=== PATIENT | female | born 1965 | race Caucasian/White ===

== ENCOUNTER → 2016-08-01 | Day surgery (SDC) | payer BC ==
[2016-07-10 10:09] LABS: BASO % 0.5 %; BASO ABS # 0.03 K/uL (0-0.2); COMPLETE YES; EOS % 2.5 %; HEMATOCRIT 44.4 % (37-47); IG% 0.2 %; LYMPH % 21.8 %; MEAN CELL VOLUME 89.3 fL (80-100); MEAN CORPUSCULAR HEMOGLOBIN 30.6 pg (25-34); MEAN CORPUSCULAR HGB CONC 34.2 g/dl (32-36); MEAN PLATELET VOLUME 9.8 fL (7.4-10.4); MONO % 9.9 %; NEUT % 65.1 %; PLATELET COUNT 312 K/uL (130-400); RED BLOOD COUNT 4.97 M/uL (4.2-5.4); WHITE BLOOD COUNT 5.97 K/uL (4.8-10.8)
--- NOTE | 2016-07-10 10:12 | HISTORY & PHYSICAL EXAMINATION ---
DATE OF ADMISSION: 08/01/2016 CHIEF COMPLAINT: Thickened endometrium and concern for endometrial mass. HISTORY OF PRESENT ILLNESS: The patient is a 51-year-old white female 0 who presented to her annual exam in May. At that time she had a followup ultrasound to monitor her known fibroid uterus. The uterus was overall shrinking in size and shape. There is a dominant fundal subserosal left fibroid that went from 110 mL to 99.8 mL. The ovaries appeared normal. The endometrium measured 8.5 mm and vascularity was noted. A mass could not be ruled out for certain so a saline infusion sonogram was ordered. A saline infusion sonogram was performed showing multiple endometrial masses and decision was made to proceed to D\T\C hysteroscopy with removal of masses. ALLERGIES: No known drug allergies. MEDICATIONS: Asmanex, Singulair and Ventolin as needed. PAST MEDICAL HISTORY: Significant for allergic rhinitis and asthma. She also has esophageal reflux. SURGICAL HISTORY: She has history of EGD, but no other surgeries. FAMILY HISTORY: Significant for family history of asthma. No family history of breast cancer. Family history of colon cancer. No family history of ovarian cancer. Family history of heart disease. SOCIAL HISTORY: The patient is . She denies smoking. She occasionally has an alcoholic beverage drinking 2-3 alcoholic beverages per week. PHYSICAL EXAMINATION: GENERAL: This is a well-developed, well-nourished white female in no acute distress. VITAL SIGNS: Blood pressure 118/80, height 5 feet 4 inches, weight 172.2 pounds. NECK: Supple without thyromegaly or lymphadenopathy. CHEST: Clear to auscultation bilaterally. CARDIOVASCULAR: Regular rate and rhythm without murmurs, gallops or rubs. ABDOMEN: Soft, nontender, nondistended, without appreciable masses. PELVIC: There is normal external female genitalia. Normal Bartholin, urethra and [place]'s glands. Vagina is pink, moist, with fair rugae. There was no active vaginal bleeding. The cervix was normal and nulliparous without discharge. On bimanual exam, the cervix is soft without cervical motion tenderness. The uterus feels a bit irregular, but no significant enlargement, and is mobile. There are no appreciable adnexal masses. Palpation of the bladder is negative. Rectovaginal exam is deferred. ASSESSMENT: Shabana is a 51-year-old G0, menstrual, who we have been following for a fibroid uterus and it was found that she had a thickened endometrium and an saline-infusion sonography consistent with multiple probable endometrial masses, most likely polyps. I have recommended a dilatation and curettage hysteroscopy with removal of endometrial masses. The risks of the procedure were discussed with the patient including the risks of anesthesia, bleeding requiring transfusion, infection and poor wound healing, damage to surrounding structures including bowel, bladder, vessels, nerves and ureters, with a 1% chance of uterine perforation requiring further surgical intervention. Discussed the other risks of surgery including heart attack, blood clot, stroke or . Questions were asked and answered. Procedure is planned for the 01 of August.
[2016-07-22 08:18] VITALS: Ht 162.6 cm; Wt 77.3 kg
[~2016-08-01] VITALS: Ht 162.6 cm; Wt 77.3 kg
[~2016-08-01] MED LIST: ATROPINE SULFATE 0.1 MG/ML 5ML SYR IV PRN; DEXAMETHASONE SOD INJ 4 MG/ML VIAL ONE; EpHEDrine SULFATE INJ 50 MG/ML AMP IV PRN; FENTANYL CITRATE INJ 50 MCG/1 ML 2 ML VIAL IV PRN; FENTANYL CITRATE INJ 50 MCG/1 ML 2 ML VIAL ONE; IBUPROFEN 600 MG TAB PO PRN; KETOROLAC TROMETHAMINE 30 MG/ML VIAL ONE; LACTATED RINGER'S 1000ML 1,000 ML IV SCH; LIDOCAINE HCL 2% 2 ML VIAL (20MG/ML) ONE; MIDAZOLAM HCL 1 MG/ML 2ML VIAL ONE; MOME110A2 IN; MONT1TAB3 PO; MoRPHine SULFATE 2 MG/ML CARP IV PRN; MoRPHine SULFATE 4 MG/ML 1 ML CARP\\VIAL IV PRN; ONDANSETRON INJ 2 MG/ML 2 ML VIAL IV PRN; ONDANSETRON INJ 2 MG/ML 2 ML VIAL ONE; OXYCODONE/ACETAMINOPHEN 5-325 TAB PO PRN; PROMETHAZINE HCL INJ 6.25 MG in SODIUM CHLORIDE 0.9% 50ML 50 ML IV PRN; PROPOFOL IV EMULSION 10 MG/ML 20 ML VIAL IV ONE; SILVER NITR/POTASSIUM NITRATE 10 APPLICATOR PACK ONE; SODIUM CHLORIDE 0.9% 1000ML 1,000 ML IV SCH
--- NOTE | 2016-08-01 06:50 | History & Physical Bridge - SC ---
H&P Re-Evaluation Bridge Note: I have examined the patient, reviewed the History & Physical and in the interval since the performance of the History & Physical I have noted the following changes of clinical significance: No changes noted
--- NOTE | 2016-08-01 07:39 | Discharge Instructions-SurgCtr ---
Discharge Instructions Visit Reason for Visit: Endometrial Mass, Thickened Endometrium Discharge Discharge Diagnosis / Problem: spp D&C/hysteroscopy Discharge Goals Goal(s): Specific goals Activity Recommendations Activity Limitations: per Instructions/Follow-up section Anesthesia . Post Anesthesia Instructions: If you have had General Anesthesia or IV Sedation: * Do not drive today. * Resume driving when surgeon permits. * Do not make important decisions or sign legal documents today. * Call surgeon for: 1. Temperature elevations greater than 101 degrees F. 2. Uncontrollable pain. 3. Excessive bleeding. 4. Persistent nausea and vomiting. 5. Medication intolerance (nausea, vomiting or rash). * For nausea and vomiting use only clear liquids such as: tea, soda, bouillon until nausea subsides, then gradually increase diet as tolerated. * If you have any concerns or questions, call your surgeon's office. If physician is unavailable and it is an emergency, call 911 or go to the nearest emergency room. . Instructions / Follow-Up Instructions / Follow-Up ACTIVITY RECOMMENDATIONS: * Avoid tampons, douching, hot tubs, pools, and intercourse until bleeding has stopped. * May shower as usual. * No strenuous activity for 24-48 hours. After 24-48 hours, you may do anything you feel like doing (driving and sports are okay). SPECIAL CARE INSTRUCTIONS: Special Diet: * Mild nausea may occur in the immediate post-operative period. * Take clear liquids such as tea, cola or bouillon until all nausea has subsided; you may then resume your normal diet. Special Care: * Light bleeding and vaginal spotting can last from a few days to 3-4 weeks. Call your doctor if bleeding becomes heavier than the heaviest part of your period. * Check your temperature twice a day for one week. If it goes above 100.4 degrees Fahrenheit (38.0 Celsius), notify your doctor. * Call your doctor's office for an appointment for 6 weeks after your surgery. FOLLOW-UP VISIT: Call your doctor's office for an appointment for 6 weeks after your surgery. Diet Recommendations Home Diet: no limitations, resume previous diet Procedures Procedures Performed: Dilatation And Curettage, Hysteroscopy, Polypectomy with Myosure Pending Studies Studies pending at discharge: no Medical Emergencies . Who to Call and When: Medical Emergencies: If at any time you feel your situation is an emergency, please call 911 immediately. . Non-Emergent Contact Non-Emergency issues call your: Student Finance Advisor . . "Provider Documentation" section prepared by Fabiola Retana.
--- NOTE | 2016-08-01 07:41 | [facility] Post Operative Brief Note ---
Immediate Operative Summary Operative Date Aug 01, 2016. Pre-Operative Diagnosis Endometrial Masses, Abnormal Bleeding Post-Operative Diagnosis Same Procedure(s) Performed Dilatation And Curettage, Hysteroscopy, Polypectomy with Myosure Surgeon Dr Retana Toe Stripper Surgeon(s) None Estimated Blood Loss 10ml Findings uterus sounded to 7 cm, was 8-10 week seize on exam. menstral blood noted. several small polypoid masses noted. both tubal ostia visualized. Fluids (cc crystalloids) 1100cc, deficit 225cc Specimens A: Endometrial Currettings B: Myosure Contents Drains none Anesthesia lma Complication(s) None
--- NOTE | 2016-08-01 08:10 | Anesthesia Progress Nt - [facility] ---
Anesthesia Post Op Note Date & Time Aug 01, 2016 at 08:10 Vital Signs Pain Intensity: 0 Vital Signs Past 12 Hours Date Time Temp Pulse Resp B/P Pulse Ox O2 Delivery O2 Flow Rate FiO2 08/01/16 07:44 36.6 75 16 128/83 100 Diffusion Mask 6 08/01/16 06:33 36.8 82 16 113/82 99 Room Air Notes Mental Status: alert / awake / arousable, participated in evaluation Pt Amnestic to Procedure: Yes Nausea / Vomiting: adequately controlled Pain: adequately controlled Airway Patency, RR, SpO2: stable & adequate BP & HR: stable & adequate Hydration State: stable & adequate Anesthetic Complications: no major complications apparent
--- NOTE | 2016-08-01 08:12 | OPERATIVE REPORT ---
DATE OF OPERATION: 08/01/2016 PREOPERATIVE DIAGNOSES: Irregular bleeding, fibroids, and endometrial mass. POSTOPERATIVE DIAGNOSES: Same. PROCEDURE: D\T\C hysteroscopy with removal of mass using polyp forceps and MyoSure. SURGEON: Dr. Retana. ANESTHESIA: General per laryngeal mask. ESTIMATED BLOOD LOSS: 10 mL FLUIDS: 1100 mL of IV fluids with a 225 mL hysteroscopic deficit. URINE OUTPUT: Clear yellow urine drained from the bladder at the end of the procedure. INDICATIONS: Shabana is a 51-year-old white female with a known fibroid uterus. She has had some heavier bleeding of late. We did another ultrasound and found thickened endometrium. SIS showed several polypoid lesions. FINDINGS: Exam under anesthesia revealed an anteverted globular uterus, approximately 8- to 10-week size, mobile. There were no adnexal masses. Uterus sounded to 7 cm. It was dilated to #25 Jennifer dilator. There were several small endometrial masses noted in the lower uterine segment, those were removed via MyoSure curettage and polyp forceps. The endometrial cavity was clear at the end of the procedure. COMPLICATIONS: None. DRAINS: None. DISPOSITION: To recovery room in stable condition. PROCEDURE IN DETAIL: The patient was taken to the operating room where she was identified verbally and by bracelet. She was placed in dorsal supine position where general anesthesia was induced without difficulty. She was then placed in dorsal lithotomy position in [facility] stirrups and prepped and draped in normal sterile fashion. Timeout was held identifying correct patient, procedure, and positioning. Exam under anesthesia was performed with the above-noted findings. The bladder was drained of urine. A weighted speculum was placed in the posterior vagina. The anterior lip of the cervix was grasped with a single tooth tenaculum. The uterus was sounded to 7 cm and dilated to #25 Jennifer dilator. The MyoSure scope was introduced with the above-noted findings. Visualization was difficult secondary to menstrual blood as well as poor visualization with the scope. The MyoSure was placed into the uterus and several small polyps were removed. Curettage was then done in 365 degrees, then the normal hysteroscope was placed into the uterus and there were no further polyps noted and the procedure was terminated. The instruments removed from the cervix. Bleeding was noted that was not attended to with pressure and so 1 [id number] suture was placed at 11 and 1 o'clock of 3-0 Vicryl to deal with this bleeding. Hemostasis was then noted to be excellent. All sponge, lap and needle counts were correct x2. The patient tolerated the procedure well and was taken to recovery room in stable condition. I attest to the content of the Intraoperative Record and any orders documented therein. Any exceptio ns are noted below.
[2016-08-01 08:18] VITALS: TEMP 36.4
[2016-08-01 08:39] VITALS: BP 128/84; PULSE 63; O2SAT 100
--- NOTE | 2016-08-01 09:58 | Medical Student: [facility] ---
Immediate Operative Summary Operative Date Aug 01, 2016. Pre-Operative Diagnosis Abnormal Uterine Bleeding & Endometrial Masses Post-Operative Diagnosis Same Procedure(s) Performed Dilation and Curettage, Hysteroscopy, Polypectomy with Myosure Surgeon Dr. Retana Information Coder Surgeon(s) None Estimated Blood Loss 10 cc Findings Uterus sounded to 7 cm. Uterus was 8-10 week size on physical exam. Menstrual blood and small polypoid masses were appreciated. Tubal ostia were visualized. Fluids (cc crystalloids) 1100 cc Deficit 225 cc Specimens A) Endometrial Curettings B) Myosure Contents Drains None Anesthesia LMA Complication(s) None Disposition Recovery Room / PACU
== END | disposition home or self-care (01) ==
LOC: X.SURG 06:10
PROVIDERS: ATTEND Obstetrics & Gynecology
DX: N84.0 Polyp of corpus uteri (principal); N93.8 Other specified abnormal uterine and vaginal bleeding; J45.909 Unspecified asthma, uncomplicated; K21.9 Gastro-esophageal reflux disease without esophagitis

== ENCOUNTER → 2017-01-16 | Outpatient (CLI) | payer BC ==
[~2017-01-16] MED LIST changes: -ATROPINE SULFATE 0.1 MG/ML 5ML SYR IV PRN; -DEXAMETHASONE SOD INJ 4 MG/ML VIAL ONE; -EpHEDrine SULFATE INJ 50 MG/ML AMP IV PRN; -FENTANYL CITRATE INJ 50 MCG/1 ML 2 ML VIAL IV PRN; -FENTANYL CITRATE INJ 50 MCG/1 ML 2 ML VIAL ONE; -IBUPROFEN 600 MG TAB PO PRN; -KETOROLAC TROMETHAMINE 30 MG/ML VIAL ONE; -LACTATED RINGER'S 1000ML 1,000 ML IV SCH; -LIDOCAINE HCL 2% 2 ML VIAL (20MG/ML) ONE; -MIDAZOLAM HCL 1 MG/ML 2ML VIAL ONE; -MoRPHine SULFATE 2 MG/ML CARP IV PRN; -MoRPHine SULFATE 4 MG/ML 1 ML CARP\\VIAL IV PRN; -ONDANSETRON INJ 2 MG/ML 2 ML VIAL IV PRN; -ONDANSETRON INJ 2 MG/ML 2 ML VIAL ONE; -OXYCODONE/ACETAMINOPHEN 5-325 TAB PO PRN; -PROMETHAZINE HCL INJ 6.25 MG in SODIUM CHLORIDE 0.9% 50ML 50 ML IV PRN; -PROPOFOL IV EMULSION 10 MG/ML 20 ML VIAL IV ONE; -SILVER NITR/POTASSIUM NITRATE 10 APPLICATOR PACK ONE; -SODIUM CHLORIDE 0.9% 1000ML 1,000 ML IV SCH
--- NOTE | 2017-01-16 14:04 | MAMMOGRAPHY REPORT ---
BILATERAL DIGITAL SCREENING MAMMOGRAM TOMOSYNTHESIS WITH CAD: 01/16/2017 CLINICAL HISTORY: Routine screening. Patient has no complaints. TECHNIQUE: Breast tomosynthesis in addition to standard 2D mammography was performed. Current study was also evaluated with a Computer Aided Detection (CAD) system. COMPARISON: Comparison is made to exams dated: 01/16/2016 mammogram, 01/11/2015 mammogram, 01/10/2014 mamm ogram, 01/07/2013 mammogram, 01/06/2012 mammogram, and 01/02/2011 mammogram - [facility] BREAST COMPOSITION: There are scattered areas of fibroglandular density in both breasts. FINDINGS: No suspicious masses, calcifications, or areas of architectural distortion are noted in ei ther breast. There has been no significant interval change compared to prior exams. Scattered bilater al benign-appearing calcifications are not significantly changed. IMPRESSION: ACR BI-RADS CATEGORY 2: BENIGN There is no mammographic evidence of malignancy. A 1 year screening mammogram is recommended. The pa tient will receive written notification of the results. Approximately 10% of breast cancers are not detected with mammography. A negative mammographic report should not delay biopsy if a clinically suggestive mass is present. Ayleen Browning M.D. /:01/16/2017 12:39:07 Youth Development Professional: Yulissa Da Silva, [facility] letter sent: Normal 1/2 BI-RADS Code: ACR BI-RADS Category 2: Benign
== END | disposition home or self-care (01) ==
LOC: C.MAMM 10:36
PROVIDERS: ATTEND Obstetrics & Gynecology
DX: Z12.31 Encounter for screening mammogram for malignant neoplasm of breast (principal)

== ENCOUNTER → 2018-01-19 | Outpatient (CLI) | payer OTHER ==
--- NOTE | 2018-01-20 14:58 | MAMMOGRAPHY REPORT ---
BILATERAL DIGITAL SCREENING MAMMOGRAM TOMOSYNTHESIS WITH CAD: 01/19/2018 CLINICAL HISTORY: Routine screening. Patient has no complaints. TECHNIQUE: The study was acquired using full field digital technology and interpreted from soft copy. Breast tomosynthesis in addition to standard 2D mammography was performed. Current study was also ev aluated with a Computer Aided Detection (CAD) system. COMPARISON: Comparison is made to exams dated: 01/16/2017 mammogram, 01/16/2016 mammogram, 01/11/2015 yulia mogram, 01/07/2013 mammogram, 01/06/2012 mammogram, and 01/02/2011 mammogram - [facility] er. BREAST COMPOSITION: There are scattered areas of fibroglandular density in both breasts. FINDINGS: The parenchymal pattern is unchanged. No developing mass, architectural distortion or cluster of susp icious microcalcifications is seen in either breast. IMPRESSION: ACR BI-RADS CATEGORY 2: BENIGN There is no mammographic evidence of malignancy. A 1 year screening mammogram is recommended.( 019) The patient will receive written notification of the results. Some breast cancers are not detected with mammography. A negative mammographic report should not marva y biopsy if a clinically suggestive mass is present. Michaela Medrano M.D. ay/:01/19/2018 16:46:40 Sales Marketing Manager: RT Theresa(Ashley)(M), [facility] letter sent: Normal 1/2 BI-RADS Code: ACR BI-RADS Category 2: Benign
== END | disposition home or self-care (01) ==
LOC: C.MAMM 09:21
PROVIDERS: ATTEND Obstetrics & Gynecology
DX: Z12.31 Encounter for screening mammogram for malignant neoplasm of breast (principal)